=== PATIENT | female | born 1995 | race American Indian/Alaskan Native ===

== ENCOUNTER 2019-07-08 20:25 | Emergency (ER) | payer OTHER ==
[2019-07-08 20:39] VITALS: BP 141/78
[2019-07-08] MEDS ORDERED: TYLENOL PO ONE (22:35)
[2019-07-08] MEDS ORDERED: IBUPROFEN PO ONE (22:35)
[2019-07-08 22:53] LABS: HCG Qualitative,Urine Negative (Negative)
[2019-07-08 22:54] LABS: Bilirubin,Urine NEG (Negative); Blood,Urine NEG (Negative); Color,Urine Yellow (Yellow); Mucus,Urine FEW /HPF; Protein,Urine <15 mg/dL mg/dL (Negative); RBC,Urine < 1.0 /HPF (0.0-6.0); Urobilinogen,Urine < 2.0 mg/dL (<2.0); WBC,Urine < 1.0 /HPF (0.0-6.0)
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
== END 2019-07-09 00:05 | disposition home or self-care (01) ==
LOC: ED 20:25
DX: S83.91XA Sprain of unspecified site of right knee, initial encounter (principal); M62.830 Muscle spasm of back; M25.552 Pain in left hip; J45.909 Unspecified asthma, uncomplicated; Z79.899 Other long term (current) drug therapy; V89.2XXA Person injured in unspecified motor-vehicle accident, traffic, initial encounter; Y93.89 Activity, other specified; Y92.488 Other paved roadways as the place of occurrence of the external cause; Y99.8 Other external cause status
CPT/HCPCS: 72100; 81001; 81025; 99283